=== PATIENT | female | born 1970 | race Two or more races ===

== ENCOUNTER 2019-03-28 19:40 | Emergency (ER) | payer OTHER ==
[~2019-03-28] VITALS: Ht 170.2 cm; Wt 74.8 kg
--- NOTE | 2019-03-28 20:15 | NUR ---
BIBS WITH FROM HOME TO ER BED3. AAOX4. NO RESP DISTRESS NOTED. AMBULATORY. C/O R WRIST PAIN. PT REPORTS THAT IT STARTED 1 HOUR AGO. PT REPORTS THAT THE PAIN ALL OF A SUDDEN STARTED AND THERE IS A BLUE BULGE ON HER WRIST. UNPO ASSESSING, NOTED A DIAGONAL RAISED PURPLISH DISCOLORATION ON THE R WRIST. ROM IS INTACT AND SENSATION AT FELT. PT DENIES TRAUMA. AWAITING MD FOR EVAL.
--- NOTE | 2019-03-28 20:50 | NUR ---
US AT BEDSIDE
[2019-03-28 21:54] VITALS: BP 112/85
--- NOTE | 2019-03-28 21:55 | NUR ---
Patient discharged to home in stable condition. Written and verbal after care instructions given. Patient verbalizes understanding of instruction. Pt ambulatory with a steady gait
== END 2019-03-28 21:55 | disposition home or self-care (01) ==
LOC: ER 19:45
DX: M25.531 Pain in right wrist (principal); J02.0 Streptococcal pharyngitis
CPT/HCPCS: 93971-TC

== ENCOUNTER 2020-01-28 20:33 | Emergency (ER) | payer OTHER ==
[~2020-01-28] VITALS: Ht 170.2 cm; Wt 74.8 kg
--- NOTE | 2020-01-28 20:42 | NUR ---
PT AAOX4. BIBSELF C/O L UPPER EXT PAIN AND NUMBNESS X2.5 WEEKS -TRAUMA. PLACED IN BED 9 ON MONITOR AND PULSE OX. MD AT BEDSIDE, AWAITING ORDERS. VSS.
[2020-01-28 20:51] VITALS: BP 116/82
== END 2020-01-29 00:31 | disposition home or self-care (01) ==
LOC: ER 20:36
DX: M79.602 Pain in left arm (principal); R22.32 Localized swelling, mass and lump, left upper limb
CPT/HCPCS: 93971-TC

== ENCOUNTER 2020-06-16 17:56 | Emergency (ER) | payer OTHER ==
[~2020-06-16] VITALS: Ht 170.2 cm; Wt 72.6 kg
[2020-06-16 18:07] VITALS: BP 128/76
[2020-06-16] MEDS ORDERED: oxyCODONE/APAP (5/325 MG) 1 UDTAB TABLET PO ONE (18:30)
[2020-06-16] MEDS ORDERED: oxyCODONE/APAP (5/325 MG) 1 UDTAB TABLET ONE (18:40)
--- NOTE | 2020-06-16 19:31 | NUR ---
US AT BEDSIDE
== END 2020-06-16 20:03 | disposition home or self-care (01) ==
LOC: ER 17:56
DX: S43.492A Other sprain of left shoulder joint, initial encounter (principal); F17.200 Nicotine dependence, unspecified, uncomplicated; X58.XXXA Exposure to other specified factors, initial encounter; Y93.89 Activity, other specified; Y92.89 Other specified places as the place of occurrence of the external cause; Y99.8 Other external cause status
CPT/HCPCS: 73060-TC; 93971-TC

== ENCOUNTER 2021-07-11 17:52 | Emergency (ER) | payer OTHER ==
[~2021-07-11] VITALS: Ht 170.2 cm; Wt 63.5 kg
[2021-07-11 18:19] VITALS: BP 127/80
[2021-07-11] MEDS ORDERED: IBUPROFEN 600 MG TABLET PO ONE (18:30)
[2021-07-11] MEDS ORDERED: IBUPROFEN 600 MG TABLET ONE (18:32)
--- NOTE | 2021-07-11 18:32 | NUR ---
REPAIR ORDER CLERK AT BEDSIDE
[2021-07-11] MEDS ORDERED: IBUP-1955 PO (19:51)
--- NOTE | 2021-07-11 19:58 | NUR ---
Patient discharged to home in stable condition. Rx and Written and verbal after care instructions given. Patient verbalizes understanding of instruction.
== END 2021-07-11 20:00 | disposition home or self-care (01) ==
LOC: ER 18:02
DX: M25.531 Pain in right wrist (principal); F17.200 Nicotine dependence, unspecified, uncomplicated; X50.1XXA Overexertion from prolonged static or awkward postures, initial encounter; Y93.E8 Activity, other personal hygiene; Y92.89 Other specified places as the place of occurrence of the external cause; Y99.8 Other external cause status
CPT/HCPCS: 73110

== ENCOUNTER 2022-01-22 23:10 | Emergency (ER) | payer BC, MEDICAID, OTHER ==
[~2022-01-22] VITALS: Ht 170.2 cm; Wt 74.8 kg
[~2022-01-22 23:10] MED LIST: IBUP-1955 PO
--- NOTE | 2022-01-22 23:20 | NUR ---
BIBSELF C/O SOB, WEAKNESS AND FEELING DIZZY FOR THE PAST FEW DAYS. PT A/OX4. TOLERATING R/A WELL WITH NO SOB. CONNECTED PT TO POX AND MONITOR. SAFETY MEASURES IN PLACE.
--- NOTE | 2022-01-22 23:33 | NUR ---
TONEY RECINOS TO BED FOUR CAPTURING THE ELECTROCARDIOGRAM.
--- NOTE | 2022-01-22 23:33 | NUR ---
LAC #20G S/L BLOOD COLLECTED AND SENT TO LAB
--- NOTE | 2022-01-22 23:34 | NUR ---
PHONING RESPIRATORY THERAPY TO BE OF ASSISTANCE IN BED NUMBER FOUR
[2022-01-22] MEDS: ALBUTEROL FS 2.5 MG/3 ML VIAL.NEB NEB ONE (23:35)
[2022-01-22] MEDS: IPRATROPIUM NEB FS 0.5 MG/2.5 ML AMPUL.NEB NEB ONE (23:35)
[2022-01-22] MEDS ORDERED: ALBUTEROL FS 2.5 MG/3 ML VIAL.NEB ONE (23:46)
[2022-01-22] MEDS ORDERED: IPRATROPIUM NEB FS 0.5 MG/2.5 ML AMPUL.NEB ONE (23:46)
--- NOTE | 2022-01-22 23:46 | NUR ---
RT AT PT'S BEDSIDE FOR BREATHING TX
[2022-01-22 23:52] LABS: BASOPHILS # (AUTO) 0.1 K/uL (0.0-0.2); BASOPHILS % (AUTO) 1.4 % (0.0-2.0); EOSINOPHILS % (AUTO) 2.6 % (0.0-6.0); HEMATOCRIT 36 % (33-45); HEMOGLOBIN 11.3 g/dL (11.5-14.8); LYMPHOCYTES # (AUTO) 3.6 K/uL (0.8-4.8); LYMPHOCYTES % (AUTO) 33.1 % (20.0-44.0); MEAN CORPUSCULAR HGB CONC 32 g/dl (31.0-36.0); MEAN CORPUSCULAR VOLUME 78 fL (82-100); MONOCYTES # (AUTO) 0.6 K/uL (0.1-1.30); MONOCYTES % (AUTO) 5.6 % (2.0-12.0); NEUTROPHILS # (AUTO) 6.2 K/uL (1.8-8.9); NEUTROPHILS % (AUTO) 57.3 % (43.0-81.0); PLATELET COUNT (AUTO) 343 K/uL (150-450); RED BLOOD CELL COUNT(AUTO) 4.58 MIL/uL (4.0-5.2); WHITE BLOOD COUNT (AUTO) 10.8 K/uL (4.3-11.0)
[2022-01-23] MEDS ORDERED: IOHEXOL-350 100 ML VIAL IV ONE (00:05)
[2022-01-23] MEDS ORDERED: IV NS 0.9% 250 ML IV ONE (00:05)
[2022-01-23 00:06] LABS: CALCIUM, SERUM 8.6 mg/dL (8.5-10.1); CARBON DIOXIDE 29 mmol/L (21-32); CHLORIDE 105 mmol/L (98-107); CREATININE 1.1 mg/dL (0.6-1.3); GLUCOSE 110 mg/dL (74-106); POTASSIUM 3.9 mmol/L (3.5-5.1); SODIUM SERUM 143 mmol/L (136-145); UREA NITROGEN, BLOOD 19 mg/dL (7-18)
--- NOTE | 2022-01-23 00:15 | NUR ---
PATIENT FELT BETTER AFTER NEBULIZATION TREATMENT.
--- NOTE | 2022-01-23 00:35 | NUR ---
PT TAKEN TO CT VIA KRYSTIN
--- NOTE | 2022-01-23 01:54 | NUR ---
IV CANNULA REMOVED
--- NOTE | 2022-01-23 01:56 | NUR ---
Patient discharged to home in stable condition. Written and verbal after care instructions given. Patient verbalizes understanding of instruction.
[2022-01-23 01:57] VITALS: BP 124/78
== END 2022-01-23 01:59 | disposition home or self-care (01) ==
LOC: ER 23:13
DX: R06.00 Dyspnea, unspecified (principal); F17.210 Nicotine dependence, cigarettes, uncomplicated
CPT/HCPCS: 99285; 71275; 99406; 93005; 85025; 80048; 36415; 84484; 94640; J7050; Q9967